=== PATIENT | male | born 1980 | race American Indian/Alaskan Native ===

== ENCOUNTER 2016-12-25 08:13 | Outpatient (CLI) | payer OTHER ==
[~2016-12-25 08:13] MED LIST: PROVENTIL IH ONE
== END 2016-12-25 08:14 | disposition home or self-care (01) ==
LOC: PF 08:13
PROVIDERS: ATTEND Internal Medicine
DX: D86.9 Sarcoidosis, unspecified (principal)
CPT/HCPCS: 94060; 94640; 94726; 94729

== ENCOUNTER 2019-08-14 11:50 | Outpatient (CLI) | payer OTHER ==
--- NOTE | 2019-08-14 14:07 | Cat Scan Report ---
CT CHEST WITHOUT CONTRAST INDICATION / CLINICAL INFORMATION: SARCOIDOSIS. TECHNIQUE: Axial CT images were obtained through the chest without contrast. Sagittal and coronal reformatted im ages. All CT scans at this location are performed using CT dose reduction for ALARA by means of autom ated exposure control. COMPARISON: None at this facility FINDINGS: HEART: No significant abnormality. THORACIC AORTA: No significant abnormality. MEDIASTINUM and PETER: No significant abnormality. No mediastinal adenopathy or suspicious lymph nodes are identified. LUNGS: Multiple bulla are identified at the lung apices with the largest measuring up to 4.7 cm at th e right apex. This may be related to paraseptal emphysematous changes. Minimal peribronchial and par aseptal thickening and nodularity is also identified in the apical regions which could be related to sarcoid. The peter appear mildly elevated indicating volume loss in the upper lobes. There is a 1.7 cm spiculated density in the right lower lobe with an associated large draining vein. This appears to r epresent an incidental pulmonary AVM. PLEURA: No significant pleural effusion. No pneumothorax. SKELETAL SYSTEM: No significant abnormality. UPPER ABDOMEN: No significant abnormality. ADDITIONAL FINDINGS: None. IMPRESSION: There is mild peribronchial and paraseptal nodularity in both upper lobes with elevated peter which c ould be related to sarcoid. No advanced findings of sarcoid or mediastinal adenopathy is identified. Bullous changes at both lung apices which could be related to emphysematous disease. 1.7 cm pulmonary AVM is suspected in the right lower lobe as described. Signer Name: Joss Harrison Jr, MD Signed: 08/14/2019 2:02 PM Workstation Name: [id number]
== END 2019-08-14 11:51 | disposition home or self-care (01) ==
LOC: CT 11:50
PROVIDERS: ATTEND Internal Medicine
DX: D86.9 Sarcoidosis, unspecified (principal)
CPT/HCPCS: 71250

== ENCOUNTER 2020-06-10 11:45 | Outpatient (CLI) | payer OTHER ==
--- NOTE | 2020-06-10 13:52 | Fluoroscopy Report ---
BARIUM SWALLOW Indication: STAGE IV SARCOIDOSIS/NEW ONSET DYSPHAGIA OF SOLIDS W SENSATION GE. Technique: Single contrast barium technique utilized to evaluate the esophagus. FINDINGS: To begin the exam, swallowing was evaluated in the lateral position under direct fluorosco py. Swallowing was normal. No mucosal irregularity, mass, mass effect, or critical stenosis. There were no abnormal tertiary c ontractions as seen with dysmotility. No gastroesophageal reflux. A barium tablet easily transverses the esophagus. IMPRESSION: Unremarkable exam. Fluoroscopic time: 1.1 minutes Number of fluoroscopic images: 24 Signer Name: Joss Harrison Jr, MD Signed: 06/10/2020 1:48 PM Workstation Name: [id number]
== END 2020-06-10 11:46 | disposition home or self-care (01) ==
LOC: FLUORO 11:45
PROVIDERS: ATTEND Internal Medicine
DX: R13.10 Dysphagia, unspecified (principal)
CPT/HCPCS: 74220